=== PATIENT | male | born 1930 | race African-American/Black ===

== ENCOUNTER 2016-12-02 09:14 | Emergency (ER) | payer OTHER, BC ==
[~2016-12-02] VITALS: Ht 182.9 cm; Wt 111.1 kg
[~2016-12-02 09:14] MED LIST: ALLOPURINOL100 MG PO; COLACE100 MG PO; DOXAZOSIN MESYLA8 MG PO; FLUTICASON0.05 MG/Ac NS; HYDROCHLOROTHIA25 MG PO; MICARDIS40 MG PO; MYCO TOP; NEXIUM20 MG PO; TRIAMCINOLONE AC0.13 TP
[2016-12-02 11:00] VITALS: BP 131/66
== END 2016-12-02 11:18 | disposition home or self-care (01) ==
LOC: ED 09:14
DX: Z00.00 Encounter for general adult medical examination without abnormal findings (principal); I10 Essential (primary) hypertension; M13.80 Other specified arthritis, unspecified site; E66.9 Obesity, unspecified; Z85.038 Personal history of other malignant neoplasm of large intestine

== ENCOUNTER → 2017-05-05 | Outpatient (CLI) | payer OTHER, BC ==
[2017-05-05 15:20] LABS: UA SPECIFIC GRAVITY 1.015 (1.005-1.035); microscopic required? YES; urine erythrocyte 3+ (NEGATIVE)
== END | disposition home or self-care (01) ==
LOC: US 13:37
PROC: BT4JZZZ Ultrasonography of Kidneys and Bladder (ICD-10-PCS; principal; 2017-05-05)
DX: R35.1 Nocturia (principal); N28.1 Cyst of kidney, acquired

== ENCOUNTER 2017-11-17 12:41 | Emergency (ER) | payer OTHER, BC ==
[~2017-11-17] VITALS: Ht 182.9 cm; Wt 108.6 kg
[2017-11-17 12:48] VITALS: BP 141/83; Ht 182.9 cm; Wt 108.6 kg
== END 2017-11-17 14:15 | disposition home or self-care (01) ==
LOC: ED 12:41
DX: L50.0 Allergic urticaria (principal); J00 Acute nasopharyngitis [common cold]; I10 Essential (primary) hypertension; Z85.038 Personal history of other malignant neoplasm of large intestine
CPT/HCPCS: J1200; J2930

== ENCOUNTER 2018-02-05 23:40 | Emergency (ER) | payer OTHER, BC ==
[~2018-02-05] VITALS: Ht 182.9 cm; Wt 99.8 kg
[2018-02-05 23:49] VITALS: Ht 182.9 cm; Wt 99.8 kg
[2018-02-06 01:55] VITALS: BP 147/91
== END 2018-02-06 01:55 | disposition home or self-care (01) ==
LOC: ED 23:40
DX: L50.9 Urticaria, unspecified (principal); I10 Essential (primary) hypertension
CPT/HCPCS: J7512